=== PATIENT | male | born 2000 | race Caucasian/White ===

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

== ENCOUNTER 2022-08-20 21:25 | Outpatient (REF) | payer MEDICAID, SELFPAY ==
[2022-08-20 21:42] LABS: HCT 45.6 % (40.0-50.0); HGB 14.7 g/dL (13.5-17.5); MCH 27.2 pg (27.0-33.0); MCHC 32.2 % (32.0-36.0); MCV 84 fL (80-95); MPV 10.2 fL (8.0-11.0); Platelet Count 315 10^3/uL (130-400); RDW 12.5 % (11.8-14.1); RDW-SD 38.5 fL; WBC 5.88 10^3/uL (4.4-10.8)
[2022-08-20 22:09] LABS: ALT 29 U/L (16-63); AST 42 U/L (15-37); Alkaline Phosphatase 109 U/L (46-116); Anion Gap 8.7 mmol/L (3-11); BUN 12 mg/dL (7-18); Bilirubin, Total 0.5 mg/dL (0.2-1.0); CO2 26.3 mmol/L (21.0-32.0); CREATININE 1.3 mg/dL (0.70-1.30); Chloride 104 mmol/L (98-107); Estimated GFR 79.66 (mL/min/1.73m2); Glucose 85 mg/dL (74-106); Potassium 4.2 mmol/L (3.5-5.1); Sodium 139 mmol/L (136-145); TSH 2.81 uIU/mL (0.36-3.74); Total Protein 8.1 g/dL (6.4-8.2)
== END 2022-08-20 21:26 | disposition home or self-care (01) ==
LOC: NCHCN 21:25
PROVIDERS: PCP Nurse Practitioner Family; Visit Provider Internal Medicine
DX: R00.2 Palpitations (principal)
CPT/HCPCS: 80053; 85027; 84443